=== PATIENT | female | born 1995 | race Caucasian/White ===

== ENCOUNTER 2016-07-21 15:36 | Outpatient (CLI) | payer OTHER ==
[2016-07-21 16:14] LABS: #Basophils 0.1 thou/uL (0.0-0.2); #Eosinphils 0.2 thou/uL (0.0-0.7); #Monocytes 0.6 thou/uL (0.11-0.59); #Neutrophils 5.6 thou/uL (1.40-6.50); %Basophils 1.1 % (0.0-1.0); %Eosinophils 2.8 % (0.0-10.0); %Lymphocytes 23.3 % (28.0-48.0); %Monocytes 6.7 % (0.0-4.0); %Neutrophils 66.1 % (31.0-61.0); Hemoglobin 13.7 g/dL (12.0-16.0); Mean Corpuscular HGB CONC 32.8 g/dL (32.0-36.0); Mean Corpuscular Hemoglobin 27.7 pg (25.0-35.0); Mean Corpuscular Volume 84.3 fl (77.0-87.0); Mean Platelet Volume 9.4 fL (7.4-10.4); Platelet Count 279 thou/uL (130-400); RBC Distribution Width 12.1 % (11.5-14.5); Red Blood Cell (RBC) Count 4.95 mill/uL (4.00-5.20); White Blood Cell (WBC) Count 8.4 thou/uL (4.8-10.8)
[2016-07-21 16:28] LABS: ALT (SGPT) 20 U/L (0-55); AST (SGOT) 18 U/L (5-34); Albumin 4.6 g/dL (3.5-5.0); Alkaline Phosphatase 67 U/L (40-150); Anion Gap 15 mmol/L (10-20); BUN (Urea Nitrogen) 7 mg/dL (7.0-18.7); Bilirubin, Total 0.3 mg/dL (0.2-1.2); Calc. Creatinine Clearance 0 mL/min (70-130); Calcium 9.3 mg/dL (7.8-10.44); Carbon Dioxide 25 mmol/L (22-29); Chloride 106 mmol/L (98-107); Estimated GFR-MDRD Greater than 90; Globulin 2.6 g/dL (2.4-3.5); Glucose 95 mg/dL (70-105); Potassium 3.7 mmol/L (3.5-5.1); Protein, Total 7.2 g/dL (6.0-8.3); Sodium 142 mmol/L (136-145)
[2016-07-24 13:23] LABS: Chlamydia by PCR Not Detected (NotDetected); GC by PCR Not Detected (NotDetected)
== END 2016-07-21 15:37 | disposition home or self-care (01) ==
LOC: MADLABBHPM 15:36
PROVIDERS: ATTEND Family Medicine
DX: R10.2 Pelvic and perineal pain (principal); R19.7 Diarrhea, unspecified
CPT/HCPCS: 80053; 83630; 84443; 85025; 87015; 87045; 87046; 87081; 87449; 87480; 87491; 87510; 87591; 87660; 87899

== ENCOUNTER 2016-07-26 08:05 | Outpatient (CLI) | payer OTHER ==
--- NOTE | 2016-07-26 11:11 | ULT ---
TRANSABDOMINAL AND TRANSVAGINAL PELVIC ULTRASOUND: Indication: Heavy menses with severe cramping and pelvic pain. Technique: Grayscale, color doppler vascular duplex with spectral analysis was performed of the pel vis via transabdominal and transvaginal approach. FINDINGS: The uterus measures 7.9 x 5.8 x 5.1 cm. Endometrial stripe measured 5 mm. There is a moderate amount of fluid seen within the cul-de-sac. The right ovary measures 2.7 x 1.5 x 1.6 cm. Left ovary measures 3.1 x 2.1 x 2.1 cm. There is a 1. 4 cm cyst within the left ovary. IMPRESSION: 1. 1.4 cm cyst within the left ovary. 2. Moderate free fluid within the pelvis, simple appearing, may be physiologic. 3. Endometrial stripe at 5 mm is within normal limits for a pre-menopausal female. POS: ISELA
== END 2016-07-26 08:06 ==
LOC: MADLABBHPM 08:05
PROVIDERS: ATTEND Family Medicine
DX: R79.89 Other specified abnormal findings of blood chemistry (principal)
CPT/HCPCS: 36415; 76856; 84439

== ENCOUNTER 2016-08-16 09:03 | Outpatient (CLI) | payer OTHER ==
[2016-08-16 10:41] LABS: Free T4 (Free Thyroxine) 0.79 ng/dL (0.70-1.48); Thyroid Stimulating Hormone 6.7706 uIU/mL (0.35-4.94)
== END 2016-08-16 09:04 ==
LOC: MADLABBHPM 09:03
PROVIDERS: ATTEND Family Medicine
DX: E03.9 Hypothyroidism, unspecified (principal)
CPT/HCPCS: 36415; 84439; 84443; 86376

== ENCOUNTER 2019-05-16 22:51 | Emergency (ER) | payer OTHER ==
--- NOTE | 2019-05-17 00:21 | RAD ---
RADIOGRAPH RIGHT FOOT 3VIEWS: DATE: 05/16/2019 11:20 PM HISTORY: 24-year-old female status post acute blunt trauma to right foot. FINDINGS: There is no evidence of fracture or dislocation. There is no evidence of periostitis, permeative lesi on, osteolytic lesion, or osteoblastic lesion. The joint spaces are maintained without erosions or significant osteophytes. IMPRESSION: Normal
== END 2019-05-16 23:42 | disposition home or self-care (01) ==
LOC: MADERS 22:51
DX: S90.31XA Contusion of right foot, initial encounter (principal); W22.8XXA Striking against or struck by other objects, initial encounter

== ENCOUNTER 2024-11-01 22:38 | Emergency (ER) | payer OTHER, SELFPAY ==
[2024-11-01] MEDS ORDERED: Lidocaine 1% (PF) 30 ML VIAL ONE (23:21)
[2024-11-01] MEDS ORDERED: Bacitracin 1 PK ONE (23:55)
== END 2024-11-02 00:01 | disposition home or self-care (01) ==
LOC: MADERS 22:38
DX: S51.811A Laceration without foreign body of right forearm, initial encounter (principal); W25.XXXA Contact with sharp glass, initial encounter
CPT/HCPCS: 12002; 99282